=== PATIENT | female | born 1970 | race Caucasian/White ===

== ENCOUNTER 2018-01-17 05:39 | Inpatient (IN) | payer MEDICARE, MEDICAID ==
[2018-01-17] VITALS (37 sets, daily range): BP systolic 81–150; BP diastolic 44–89
[~2018-01-17] VITALS: Ht 165.1 cm; Wt 76.2 kg
[~2018-01-17 05:39] MED LIST: LEVO50TA8 PO; VITA1CAP PO
[2018-01-17] MEDS ORDERED: LACTATED RINGERS 1,000 ML IV SCH (06:00)
[2018-01-17] MEDS ORDERED: THROMBIN (BOVINE) 5000 UNITS/VIAL TOP ONE ×2 (06:29→06:30)
[2018-01-17] MEDS ORDERED: GELATIN SPONGE,ABSORBABLE 12-7MM SPONGE ONE (06:29)
[2018-01-17] MEDS ORDERED: NORMAL SALINE 0.9% 10 ML SYR ONE (06:29)
[2018-01-17] MEDS ORDERED: LIDOCAINE HCL/EPINEPHRINE 1%-EPI 1:100,000 20 ML VIAL ONE (06:30)
[2018-01-17] MEDS ORDERED: BACITRACIN 50,000 UNITS/VIAL ONE (06:30)
[2018-01-17] MEDS ORDERED: HYDROMORPHONE HCL/PF 2MG/ML (OR) ONE (06:43)
[2018-01-17] MEDS ORDERED: FENTANYL CITRATE/PF 50MCG/ML 5ML VIAL ONE (06:44)
[2018-01-17] MEDS ORDERED: MIDAZOLAM HCL 2 MG/2 ML VIAL ONE (06:44)
[2018-01-17] MEDS ORDERED: ROCURONIUM BROMIDE 10MG/ML VIAL 5ML IV ONE ×2 (06:44→07:53)
[2018-01-17] MEDS ORDERED: PROPOFOL 200MG/20ML VIAL IV ONE (06:44)
[2018-01-17] MEDS ORDERED: PHENYLEPHRINE HCL 10 MG/ML 1ML (IV VIAL) IV ONE (06:47)
[2018-01-17] MEDS ORDERED: CEFAZOLIN SODIUM 1000MG/VIAL ONE (06:48)
[2018-01-17] MEDS ORDERED: SODIUM CHLORIDE 0.9% 10ML VIAL ONE (06:48)
[2018-01-17 07:01] LABS: UCG SCREEN NEGATIVE
[2018-01-17] MEDS ORDERED: ONDANSETRON HCL 4MG/2ML INJ IV PRN (07:15)
[2018-01-17] MEDS ORDERED: GLYCOPYRROLATE 0.2 MG/ML 2ML VIAL ONE (09:22)
[2018-01-17] MEDS ORDERED: NEOSTIGMINE METHYLSULFATE 1MG/ML 10 ML VIAL ONE (09:22)
[2018-01-17] MEDS ORDERED: NALOXONE INJ IV PRN (10:30)
[2018-01-17] MEDS: HYDROMORPHONE PCA 10MG/50ML IV PRN (11:20)
[2018-01-17] MEDS: DEXT 5%/LACTATED RINGERS 1,000 ML IV SCH ×2 (11:41→18:56)
[2018-01-17] MEDS: ONDANSETRON INJ IV PRN ×2 (11:41→16:00)
[2018-01-17] MEDS ORDERED: NICARDIPINE 40MG/200ML PREMIX 200 ML IV PRN (12:00)
[2018-01-17] MEDS ORDERED: INFLUENZA VIRUS VACCINE(AFLURIA) 0.5ML SYR IM ONE (14:00)
[2018-01-17] MEDS ORDERED: CEFAZOLIN SODIUM 1000MG/VIAL IV SCH (14:00)
[2018-01-17] MEDS: CEFAZOLIN 1000MG PREMIX 50 ML IV SCH ×2 (15:02→21:25)
[2018-01-17 16:38] LABS: BASOPHILS % 0.5 % (0.0-2.0); EOSINOPHILS % 0.7 % (0.0-5.0); HEMATOCRIT. 32.1 % (36.0-48.0); HEMOGLOBIN. 10.9 g/dL (12.0-16.0); MEAN CORPUSCULAR HEMOGLOBIN 33.6 pg (28.0-32.0); MEAN CORPUSCULAR VOLUME 99.4 fL (81.0-99.0); MEAN PLATELET VOLUME 9.2 fl (7.4-10.4); MONOCYTES % 4.7 % (2.0-8.0); NEUTROPHILS % 83.1 % (40.0-76.0); PLATELET 290 x1000/uL (130-400); RED BLOOD CELL COUNT 3.23 mill/uL (4.2-5.4); RED CELL DISTRIBUTION WIDTH 13.4 % (11.6-14.6)
[2018-01-17 16:45] LABS: CHLORIDE 111 mEq/L (98-107)
[2018-01-17] MEDS ORDERED: PANTOPRAZOLE SODIUM 40 MG/VIAL IV NR (17:55)
[2018-01-17] MEDS: DIPHENHYDRAMINE INJ IV PRN (18:14)
[2018-01-17] MEDS ORDERED: IPRATROPIUM/ALBUTEROL 0.5-3(2.5)MG/3ML NEB HHN PRN (18:30)
[2018-01-17] MEDS ORDERED: BISACODYL 5MG TABLET PO PRN (18:30)
[2018-01-17] MEDS: DOCUSATE SODIUM 100MG CAPSULE PO SCH (18:44)
[2018-01-17] MEDS: NICOTINE 14MG PATCH TD SCH (18:44)
[2018-01-17] MEDS ORDERED: HYDROCODONE/APAP 7.5/325MG 1 TAB TABLET PO NR (19:00)
[2018-01-17] MEDS: METOCLOPRAMIDE HCL 10MG/2ML VIAL IV SCH (23:28)
[2018-01-18] VITALS (49 sets, daily range): BP systolic 89–164; BP diastolic 34–102
[2018-01-18] MEDS: METOCLOPRAMIDE HCL 10MG/2ML VIAL IV SCH ×4 (06:00→23:40)
[2018-01-18] MEDS: CEFAZOLIN 1000MG PREMIX 50 ML IV SCH ×3 (06:00→21:24)
[2018-01-18 07:24] LABS: BASOPHILS % 0.5 % (0.0-2.0); EOSINOPHILS % 1.5 % (0.0-5.0); HEMATOCRIT. 30.1 % (36.0-48.0); HEMOGLOBIN. 10.2 g/dL (12.0-16.0); LYMPHOCYTES % 12.3 % (20.0-50.0); MEAN CORPUSCULAR VOLUME 99.9 fL (81.0-99.0); MONOCYTES % 6.5 % (2.0-8.0); NEUTROPHILS % 79.2 % (40.0-76.0); PLATELET 261 x1000/uL (130-400); RED BLOOD CELL COUNT 3.01 mill/uL (4.2-5.4); RED CELL DISTRIBUTION WIDTH 13.3 % (11.6-14.6)
[2018-01-18 07:30] LABS: CHLORIDE 107 mEq/L (98-107)
[2018-01-18] MEDS ORDERED: SODIUM CHLORIDE 0.9% 250 ML IV ONE (08:36)
[2018-01-18] MEDS: DIPHENHYDRAMINE INJ IV PRN ×3 (09:05→21:34)
[2018-01-18] MEDS: HYDROCODONE/APAP 7.5/325MG 1 TAB TABLET PO PRN ×2 (09:06→13:55)
[2018-01-18] MEDS: PANTOPRAZOLE SODIUM 40 MG/VIAL IV SCH (09:08)
[2018-01-18] MEDS: DOCUSATE SODIUM 100MG CAPSULE PO SCH (09:08)
[2018-01-18] MEDS: NICOTINE 14MG PATCH TD SCH (09:37)
[2018-01-18] MEDS ORDERED: LIDOCAINE HCL 1% 20ML VIAL (Pyxis) INJ ONE (09:56)
[2018-01-18] MEDS: DEXT 5%/LACTATED RINGERS 1,000 ML IV SCH ×4 (11:00→23:41)
[2018-01-18] MEDS: HYDROMORPHONE PCA 10MG/50ML IV PRN (12:11)
[2018-01-19] VITALS (29 sets, daily range): BP systolic 102–158; BP diastolic 47–70
[2018-01-19 05:45] LABS: BASOPHILS % 0.5 % (0.0-2.0); EOSINOPHILS % 1.4 % (0.0-5.0); HEMATOCRIT. 27.3 % (36.0-48.0); HEMOGLOBIN. 9.2 g/dL (12.0-16.0); LYMPHOCYTES % 13.4 % (20.0-50.0); MEAN CORPUSCULAR HEMOGLOBIN 33.8 pg (28.0-32.0); MEAN CORPUSCULAR VOLUME 99.9 fL (81.0-99.0); MEAN PLATELET VOLUME 8.9 fl (7.4-10.4); MONOCYTES % 8.4 % (2.0-8.0); NEUTROPHILS % 76.3 % (40.0-76.0); PLATELET 236 x1000/uL (130-400); RED BLOOD CELL COUNT 2.73 mill/uL (4.2-5.4); RED CELL DISTRIBUTION WIDTH 13.2 % (11.6-14.6)
[2018-01-19] MEDS: METOCLOPRAMIDE HCL 10MG/2ML VIAL IV SCH ×3 (06:00→19:08)
[2018-01-19] MEDS: CEFAZOLIN 1000MG PREMIX 50 ML IV SCH ×2 (06:00→14:00)
[2018-01-19 06:05] LABS: CHLORIDE 107 mEq/L (98-107)
[2018-01-19] MEDS: DIPHENHYDRAMINE INJ IV PRN (07:31)
[2018-01-19] MEDS: PANTOPRAZOLE SODIUM 40 MG/VIAL IV SCH (09:00)
[2018-01-19] MEDS: DOCUSATE SODIUM 100MG CAPSULE PO SCH (09:00)
[2018-01-19] MEDS: NICOTINE 14MG PATCH TD SCH (09:01)
[2018-01-19] MEDS ORDERED: POLYETHYLENE GLYCOL 3350 (17GM) 1 DOSE PACK PO PRN (10:00)
[2018-01-19] MEDS: HYDROCODONE/APAP 7.5/325MG 1 TAB TABLET PO PRN (10:07)
[2018-01-19] MEDS ORDERED: CARISOPRODOL 350 MG TABLET PO PRN (12:30)
[2018-01-19] MEDS: ONDANSETRON INJ IV PRN (16:49)
[2018-01-20] VITALS (7 sets, daily range): BP systolic 90–115; BP diastolic 47–76
[2018-01-20] MEDS: METOCLOPRAMIDE HCL 10MG/2ML VIAL IV SCH ×5 (00:33→23:26)
[2018-01-20] MEDS: DIPHENHYDRAMINE INJ IV PRN (00:55)
[2018-01-20] MEDS: HYDROMORPHONE PCA 10MG/50ML IV PRN (04:50)
[2018-01-20] MEDS: HYDROCODONE/APAP 7.5/325MG 1 TAB TABLET PO PRN (06:50)
[2018-01-20] MEDS: NICOTINE 14MG PATCH TD SCH (08:54)
[2018-01-20] MEDS: FAMOTIDINE 20MG/2ML VIAL IV SCH ×2 (08:54→21:27)
[2018-01-20] MEDS: DOCUSATE SODIUM 250MG CAPSULE PO SCH (08:55)
[2018-01-20 20:43] LABS: HEMATOCRIT. 28.6 % (36.0-48.0); HEMOGLOBIN. 9.7 g/dL (12.0-16.0); MEAN CORPUSCULAR HEMOGLOBIN 33.7 pg (28.0-32.0); MEAN CORPUSCULAR VOLUME 99.5 fL (81.0-99.0); MEAN PLATELET VOLUME 8.7 fl (7.4-10.4); MONOCYTES % 5.9 % (2.0-8.0); NEUTROPHILS % 73.1 % (40.0-76.0); PLATELET 293 x1000/uL (130-400); RED BLOOD CELL COUNT 2.87 mill/uL (4.2-5.4); RED CELL DISTRIBUTION WIDTH 13.2 % (11.6-14.6)
[2018-01-20 21:21] LABS: CHLORIDE 105 mEq/L (98-107)
[2018-01-21] VITALS: BP 107/57
[2018-01-21] MEDS: HYDROCODONE/APAP 7.5/325MG 1 TAB TABLET PO PRN ×4 (00:32→20:19)
[2018-01-21 04:00] VITALS: BP 99/54
[2018-01-21] MEDS: METOCLOPRAMIDE HCL 10MG/2ML VIAL IV SCH ×3 (05:29→17:33)
[2018-01-21 08:00] VITALS: BP 104/51
[2018-01-21] MEDS: DOCUSATE SODIUM 250MG CAPSULE PO SCH (08:33)
[2018-01-21] MEDS: FAMOTIDINE 20MG/2ML VIAL IV SCH ×2 (08:33→20:19)
[2018-01-21] MEDS: NICOTINE 14MG PATCH TD SCH (08:34)
[2018-01-21 09:12] LABS: BASOPHILS % 0.7 % (0.0-2.0); EOSINOPHILS % 3.7 % (0.0-5.0); HEMATOCRIT. 29.2 % (36.0-48.0); HEMOGLOBIN. 9.9 g/dL (12.0-16.0); LYMPHOCYTES % 17.2 % (20.0-50.0); MEAN CORPUSCULAR VOLUME 99.9 fL (81.0-99.0); MEAN PLATELET VOLUME 8.9 fl (7.4-10.4); MONOCYTES % 5.7 % (2.0-8.0); NEUTROPHILS % 72.7 % (40.0-76.0); PLATELET 321 x1000/uL (130-400); RED BLOOD CELL COUNT 2.92 mill/uL (4.2-5.4); RED CELL DISTRIBUTION WIDTH 12.8 % (11.6-14.6)
[2018-01-21 09:38] LABS: CHLORIDE 105 mEq/L (98-107)
[2018-01-21 12:00] VITALS: BP 87/55
[2018-01-21 16:00] VITALS: BP 135/63
[2018-01-21 20:00] VITALS: BP 91/47
[2018-01-22] VITALS: BP 112/54
[2018-01-22] MEDS: METOCLOPRAMIDE HCL 10MG/2ML VIAL IV SCH ×3 (00:27→12:00)
[2018-01-22 04:00] VITALS: BP 107/59
[2018-01-22] MEDS: HYDROCODONE/APAP 7.5/325MG 1 TAB TABLET PO PRN ×2 (04:07→10:25)
[2018-01-22 08:00] VITALS: BP_SYST 100; BP_SYST 155; BP_DIAS 64; BP_DIAS 73
[2018-01-22] MEDS: DOCUSATE SODIUM 250MG CAPSULE PO SCH (10:24)
[2018-01-22] MEDS: FAMOTIDINE 20MG/2ML VIAL IV SCH (10:24)
[2018-01-22] MEDS: NICOTINE 14MG PATCH TD SCH (10:25)
[2018-01-22 12:00] VITALS: BP 112/73
[2018-01-22 15:18] VITALS: BP 112/73
== END 2018-01-22 15:56 | disposition home health service (06) | DRG 460 ==
LOC: OR 05:39 → MICUNO 05:40 → 6EST 01-19 14:55
PROVIDERS: ADMIT Internal Medicine; ATTEND Internal Medicine
PROC: 01NB0ZZ Release Lumbar Nerve, Open Approach (ICD-10-PCS; 2018-01-17)
PROC: 02HV33Z Insertion of Infusion Device into Superior Vena Cava, Percutaneous Approach (ICD-10-PCS; 2018-01-17)
PROC: B548ZZA Ultrasonography of Superior Vena Cava, Guidance (ICD-10-PCS; 2018-01-17)
PROC: 0SG0071 Fusion of Lumbar Vertebral Joint with Autologous Tissue Substitute, Posterior Approach, Posterior Column, Open Approach (ICD-10-PCS; principal; 2018-01-17 07:00)
DX: M48.061 Spinal stenosis, lumbar region without neurogenic claudication (principal); M47.16 Other spondylosis with myelopathy, lumbar region; D62 Acute posthemorrhagic anemia; M47.26 Other spondylosis with radiculopathy, lumbar region; D72.829 Elevated white blood cell count, unspecified; E03.9 Hypothyroidism, unspecified; E66.9 Obesity, unspecified; F17.210 Nicotine dependence, cigarettes, uncomplicated; M43.16 Spondylolisthesis, lumbar region; R26.9 Unspecified abnormalities of gait and mobility; Z71.6 Tobacco abuse counseling
CPT/HCPCS: 36415; 36569; 71045; 72100; 77001; 80048; 81025; 86850; 86900; 88304; 88311; 90686; 95863; 95925; 95926; 95928; 95929; 97116; 97163; 97166; 97530; 97760; A4216; C1713; C1725; C1893; C9113; J0690; J1170; J1200; J2250; J2370; J2405; J2704; J2710; J2765; J3010; J3490; J7050; J7121

== ENCOUNTER 2018-07-31 09:28 | Day surgery (SDC) | payer MEDICARE, MEDICAID ==
[~2018-07-31] VITALS: Ht 165.1 cm; Wt 77.1 kg
[2018-07-31] MEDS ORDERED: LACTATED RINGERS 1,000 ML IV SCH (10:00)
[2018-07-31] MEDS ORDERED: SIMETHICONE 40 MG/0.6 ML 30ML ONE (10:30)
[2018-07-31 10:48] LABS: UCG SCREEN NEGATIVE
[2018-07-31] MEDS ORDERED: BIOT1TAB7 PO (11:37)
[2018-07-31] MEDS ORDERED: PARO30TA62 PO (11:37)
[2018-07-31] MEDS ORDERED: CALC-1042 PO (11:37)
[2018-07-31] MEDS ORDERED: MULT-1146 PO (11:37)
[2018-07-31] MEDS ORDERED: PROPOFOL 200MG/20ML VIAL IV ONE ×3 (13:12→13:52)
[2018-07-31] MEDS ORDERED: MIDAZOLAM HCL 5 MG/5 ML VIAL ONE (13:12)
[2018-07-31] MEDS ORDERED: SUCCINYLCHOLINE CHLORIDE 200MG/10ML IV ONE (13:15)
[2018-07-31] MEDS ORDERED: LIDOCAINE HCL/PF 1% 10 MG/ML 5ML VIAL ONE (13:15)
[2018-07-31] MEDS ORDERED: SODIUM CHLORIDE 0.9% 1,000 ML IV ONE (14:06)
[2018-07-31] MEDS ORDERED: MORPHINE SULFATE 2 MG/ML CPJ (NOT FOR IM USE) IV PRN (14:15)
[2018-07-31] MEDS ORDERED: ONDANSETRON HCL 4MG/2ML INJ IV PRN (14:15)
[2018-07-31] MEDS ORDERED: HYDROMORPHONE HCL/PF 2MG/ML CPJ IV PRN (14:15)
[2018-07-31] MEDS ORDERED: MEPERIDINE HCL/PF 25MG/ML CPJ IV PRN (14:15)
== END 2018-07-31 16:00 | disposition home or self-care (01) ==
LOC: OR 09:28
PROVIDERS: ATTEND Internal Medicine Gastroenterology
DX: K57.30 Diverticulosis of large intestine without perforation or abscess without bleeding (principal); E66.3 Overweight; F41.9 Anxiety disorder, unspecified; Z72.89 Other problems related to lifestyle; Z79.899 Other long term (current) drug therapy; Z98.891 History of uterine scar from previous surgery
CPT/HCPCS: 45378; 81025; J0330; J2250; J2704; J3490

== ENCOUNTER 2018-08-13 09:00 | Day surgery (SDC) | payer MEDICARE, MEDICAID ==
[~2018-08-13] VITALS: Ht 165.1 cm; Wt 77.1 kg
[~2018-08-13 09:00] MED LIST changes: +BIOT1TAB7 PO; +CALC-1042 PO; +MULT-1146 PO; +PARO30TA62 PO
[2018-08-13 09:59] LABS: UCG SCREEN NEGATIVE
[2018-08-13] MEDS ORDERED: LACTATED RINGERS 1,000 ML IV SCH (10:15)
[2018-08-13] MEDS ORDERED: SIMETHICONE 40 MG/0.6 ML 30ML ONE (10:25)
[2018-08-13] MEDS ORDERED: FENTANYL CITRATE/PF 50MCG/ML 2ML VIAL ONE (10:28)
[2018-08-13] MEDS ORDERED: PROPOFOL 200MG/20ML VIAL IV ONE (10:29)
[2018-08-13] MEDS ORDERED: MIDAZOLAM HCL 2 MG/2 ML VIAL ONE (10:29)
[2018-08-13] MEDS ORDERED: DIPHENHYDRAMINE 50MG/ML VIAL ONE ×2 (10:29→10:52)
[2018-08-13] MEDS ORDERED: LIDOCAINE HCL/PF 1% 10 MG/ML 5ML VIAL ONE (10:31)
== END 2018-08-13 14:30 | disposition home or self-care (01) ==
LOC: OR 09:00
PROVIDERS: ATTEND Internal Medicine Gastroenterology
DX: K62.89 Other specified diseases of anus and rectum (principal); K64.8 Other hemorrhoids; K57.30 Diverticulosis of large intestine without perforation or abscess without bleeding; K62.5 Hemorrhage of anus and rectum; K31.89 Other diseases of stomach and duodenum; Z79.899 Other long term (current) drug therapy
CPT/HCPCS: 45380; 81025; 88305; 88312; 88313; J1200; J2250; J2704; J3010; J3490

== ENCOUNTER 2019-01-25 15:26 | Emergency (ER) | payer MEDICARE, MEDICAID ==
[~2019-01-25] VITALS: Ht 162.6 cm; Wt 70.0 kg
[2019-01-25] MEDS ORDERED: MORPHINE SULFATE 4 MG/ML CPJ (NOT FOR IM USE) IV STA (21:31)
[2019-01-25] MEDS ORDERED: ONDANSETRON HCL 4MG/2ML INJ IV STA (21:31)
[2019-01-25] MEDS ORDERED: SODIUM CHLORIDE 0.9% 1,000 ML IV ONE (21:31)
[2019-01-25 21:42] LABS: CLARITY URINE CLEAR (CLEAR); COLOR URINE YELLOW (YELLOW); KETONES URINE NEGATIVE (NEGATIVE); LEUKOCYTE ESTERASE URINE NEGATIVE (NEGATIVE); NITRITE URINE NEGATIVE (NEGATIVE); OCCULT BLOOD URINE 3+ (NEGATIVE); PH URINE 5.5 (4.5-8.0); PROTEIN URINE NEGATIVE (NEGATIVE); SPECIFIC GRAVITY URINE 1.023 (1.005-1.030); UROBILINOGEN URINE 0.2 E.U./dL (0.2-1.0)
[2019-01-25 22:10] LABS: BASOPHILS % 1.3 % (0.0-2.0); EOSINOPHILS % 3.1 % (0.0-5.0); HEMATOCRIT. 35.1 % (36.0-48.0); HEMOGLOBIN. 11.9 g/dL (12.0-16.0); LYMPHOCYTES % 32.4 % (20.0-50.0); MEAN CORPUSCULAR HEMOGLOBIN 29.9 pg (28.0-32.0); MEAN CORPUSCULAR VOLUME 88.1 fL (81.0-99.0); MEAN PLATELET VOLUME 8.3 fl (7.4-10.4); MONOCYTES % 5.8 % (2.0-8.0); NEUTROPHILS % 57.4 % (40.0-76.0); PLATELET 316 x1000/uL (130-400); RED BLOOD CELL COUNT 3.99 mill/uL (4.2-5.4); RED CELL DISTRIBUTION WIDTH 14.5 % (11.6-14.6)
[2019-01-25 22:16] LABS: CHLORIDE 110 mEq/L (98-107)
[2019-01-25 22:17] LABS: PROTHROMBIN TIME 9.9 sec (9.6-11.0)
[2019-01-26] MEDS ORDERED: MORPHINE SULFATE 4 MG/ML CPJ (NOT FOR IM USE) IV STA (00:18)
[2019-01-26] MEDS ORDERED: ONDANSETRON HCL 4MG/2ML INJ IV STA (00:18)
[2019-01-26 00:34] VITALS: BP 113/63
[2019-01-26] MEDS ORDERED: IOHEXOL-300 100 ML BOTTLE ONE (02:21)
== END 2019-01-26 02:36 | disposition home or self-care (01) ==
LOC: ER 15:26
DX: K57.90 Diverticulosis of intestine, part unspecified, without perforation or abscess without bleeding (principal); M54.9 Dorsalgia, unspecified; K62.89 Other specified diseases of anus and rectum; W01.0XXA Fall on same level from slipping, tripping and stumbling without subsequent striking against object, initial encounter; Y93.9 Activity, unspecified; Y92.9 Unspecified place or not applicable
CPT/HCPCS: 36415; 74177; 80053; 81003; 83690; 85025; 85610; 96374; 96375; 96376; 99284; J2270; J2405; J7030; Q9967